=== PATIENT | male | born 1980 | race American Indian/Alaskan Native ===

== ENCOUNTER 2017-04-25 17:28 | Emergency (ER) | payer MEDICAID ==
[2017-04-25 17:41] VITALS: BP 137/79
[2017-04-25 18:22] LABS: CHLORIDE,CL 104 mmol/L (101-111); SODIUM,NA 136 mmol/L (135-145)
--- NOTE | 2017-04-25 19:34 | EDM.PDOC ---
Scribed by Lena Shaffer 04/25/17 1913 for Agapito Bravo PA ED HPI GENERAL MEDICAL PROBLEM - General Chief Complaint: Fever Stated Complaint: [id number] CHEST AND BACK PAIN HARDLY BREATH Time Seen by Provider: 04/25/17 18:55 Source of Information: Reports: Patient History Limitations: Reports: No Limitations - History of Present Illness INITIAL COMMENTS - FREE TEXT/NARRATIVE: This 36 yo male patient reports to the ED with generalized chest tightness, a fever and not feeling well over the past 1-2 weeks. The patient reports he has had increased stress in his life, but got worried when his symptoms continued over the week. Duration: Week(s):, Constant Location: Reports: Chest Quality: Reports: Dull, Pressure Severity: Moderate Improves with: Reports: None Worsens with: Reports: None Associated Symptoms: Reports: No Other Symptoms Back Pain Score (Numeric/FACES): 5 - Related Data Allergies Allergy/AdvReac Type Severity Reaction Status Date / Time No Known Allergies Allergy Verified 04/25/17 17:38 Home Meds: Home Meds Buprenorphine HCl/Naloxone HCl [Zubsolv 8.6-2.1 mg Tablet Sl] 2 tab PO ASDIRECTED 04/25/17 [History] Past Medical History - Past Health History Medical/Surgical History: Denies Medical/Surgical History HEENT History: Reports: None Cardiovascular History: Reports: None Respiratory History: Reports: None Gastrointestinal History: Reports: None Genitourinary History: Reports: None Musculoskeletal History: Reports: None Neurological History: Reports: None Psychiatric History: Reports: Addiction Endocrine/Metabolic History: Reports: None Hematologic History: Reports: None Immunologic History: Reports: None Oncologic (Cancer) History: Reports: None Dermatologic History: Reports: None - Infectious Disease History Infectious Disease History: Reports: None - Past Surgical History Head Surgeries/Procedures: Reports: None Male Surgical History: Reports: None Social & Family History - Tobacco Use Smoking Status *Q: Current Every Day Smoker Years of Tobacco use: 1 Packs/Tins Daily: 0.5 Second Hand Smoke Exposure: No - Alcohol Use Days Per Week of Alcohol Use: 2 - Recreational Drug Use Recreational Drug Use: Yes Recreational Drug Type: Reports: Other (see below) Other Recreational Drug Type: tramadol Recreational Drug Use Frequency: Not Used In Over 2 Months - Living Situation & Occupation Living situation: Reports: Occupation: Employed ED ROS GENERAL - Review of Systems Review Of Systems: ROS reveals no pertinent complaints other than HPI. ED EXAM, GENERAL - Physical Exam Exam: See Below Exam Limited By: No Limitations General Appearance: Alert, WD/WN, No Apparent Distress Ears: Normal External Exam, Normal Canal, Hearing Grossly Normal, Normal TMs Nose: Normal Inspection, Normal Mucosa, No Blood Throat/Mouth: Normal Inspection, Normal Lips, Normal Teeth, Normal Gums, Normal Oropharynx, Normal Voice, No Airway Compromise Head: Atraumatic, Normocephalic Neck: Normal Inspection, Supple, Non-Tender, Full Range of Motion Respiratory/Chest: No Respiratory Distress, Chest Non-Tender, Rhonchi (faint in lower lobes) Cardiovascular: Normal Peripheral Pulses, Regular Rate, Rhythm, No Edema, No Gallop, No JVD, No Murmur, No Rub GI/Abdominal: Normal Bowel Sounds, Soft, Non-Tender, No Organomegaly, No Distention, No Abnormal Bruit, No Mass (Male) Exam: Deferred Rectal (Males) Exam: Deferred Back Exam: Normal Inspection, Full Range of Motion, NT Extremities: Normal Inspection, Normal Range of Motion, Non-Tender, Normal Capillary Refill, No Pedal Edema Neurological: Alert, Oriented, CN II-XII Intact, Normal Cognition, Normal Reflexes, No Motor/Sensory Deficits Psychiatric: Anxious Skin Exam: Warm, Dry, Intact, Normal Color, No Rash Lymphatic: No Adenopathy Course - Vital Signs Last Recorded V/S: Last Vital Signs Temp 38.2 C H 04/25/17 17:40 Pulse 79 04/25/17 17:40 Resp 16 04/25/17 17:40 BP 137/79 04/25/17 17:40 Pulse Ox 97 04/25/17 17:40 - Orders/Labs/Meds Orders: Active Orders 24 hr Category Date Time Status EKG Documentation Completion [RC] STAT Care 04/25/17 18:58 Active Labs: Laboratory Tests 04/25/17 04/25/17 04/25/17 Range/Units 17:58 17:58 17:58 WBC 8.2 (5.0-10.0) 10^3/uL RBC 4.96 (4.6-6.2) 10^6/uL Hgb 14.8 (14.0-18.0) g/dL Hct 43.2 (40.0-54.0) % MCV 87.1 (80-100) fL MCH 29.8 (27.0-34.0) pg MCHC 34.3 (33.0-35.0) g/dL Plt Count 246 (150-450) 10^3/uL Neut % (Auto) 75.5 H (42.2-75.2) % Lymph % (Auto) 18.7 L (20.5-50.1) % [place] % (Auto) 5.1 (2-8) % Eos % (Auto) 0.2 L (1.0-3.0) % Baso % (Auto) 0.5 (0.0-1.0) % Sodium 136 (135-145) mmol/L Potassium 3.5 L (3.6-5.0) mmol/L Chloride 104 (101-111) mmol/L Carbon Dioxide 26.0 (21.0-31.0) mmol/L Anion Gap 9.5 BUN 11 (7-18) mg/dL Creatinine 1.1 (0.6-1.3) mg/dL Est Cr Clr Drug Dosing 85.13 mL/min Estimated GFR (MDRD) > 60 BUN/Creatinine Ratio 10.00 Glucose 101 (74-105) mg/dL Calcium 8.9 (8.4-10.2) mg/dl Total Bilirubin 0.9 (0.2-1.0) mg/dL AST 26 (10-42) IU/L ALT 27 (10-60) IU/L Alkaline Phosphatase 57 (42-121) IU/L Troponin I < 0.02 (0.00-0.02) ng/ml Total Protein 7.5 (6.7-8.2) g/dl Albumin 4.7 (3.2-5.5) g/dl Globulin 2.8 Albumin/Globulin Ratio 1.68 Influenza A and B: Negative. Departure - Departure Time of Disposition: 19:32 Disposition: Home, Self-Care 01 Condition: Fair Clinical Impression: Bronchitis - Discharge Information Instructions: Acute Bronchitis, [place] Forms: ED Department Discharge Care Plan Goals: The patient was advised of the examination, lab and EKG results during the visit. The patient was discharged with a script for Augmentin (500/125) to take 1 by mouth 3 times per day for 10 days. If the patient has any additional symptoms or concerns, the patient should follow-up with his primary care facility or return to the emergency department. I have read and agree with the documentation that has been completed regarding this visit. By signing this record, I attest that the documentation was completed in my physical presence and is an accurate record of the encounter.
--- NOTE | 2017-04-27 12:40 | EKG ---
04/25/2017 - DIANA GOMEZ - FINDINGS: A 12-lead EKG shows normal sinus rhythm with heart rate of 63. No significant ST elevation or ST depression noted on this 12-lead EKG. [facility] /[id number]
== END 2017-04-25 19:39 | disposition home or self-care (01) ==
LOC: DL.ED 17:28
DX: J40 Bronchitis, not specified as acute or chronic (principal); F17.210 Nicotine dependence, cigarettes, uncomplicated
CPT/HCPCS: 36415; 80053; 84484; 85025; 87804; 93005; 99285

== ENCOUNTER 2018-08-29 13:57 | Emergency (ER) | payer BC, MEDICAID ==
[2018-08-29 14:06] VITALS: BP 143/82
--- NOTE | 2018-08-29 14:38 | EDM.PDOC ---
<Shoshana Gatica - Last Filed: 08/29/18 15:41> ED HPI GENERAL MEDICAL PROBLEM - General Chief Complaint: General Stated Complaint: LEFT ARM NUMB,FEELING FAINT,SLURRED SPEECH Time Seen by Provider: 08/29/18 14:30 Source of Information: Reports: Patient History Limitations: Reports: No Limitations - History of Present Illness INITIAL COMMENTS - FREE TEXT/NARRATIVE: Patient presents to ER with CC of tingling in right hand that started in fingers and moved up his arm and dizziness that began today while at work. 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 Patient additionally states that it may be anxiety, although he reports no hx of anxiety. Patient denies any chest pain or shortness of breath. Patient PMH positive for hypertension, although negative for other cardiovascular disease. Patient NIH scale negative. Denies any N/V, fever, chills, recent illness. VSS upon arrival. Patient is alert & orientated x4. PERRLA. Onset Date: 08/29/18 Onset Time: 13:30 - Related Data Allergies Allergy/AdvReac Type Severity Reaction Status Date / Time No Known Allergies Allergy Verified 08/29/18 14:07 Home Meds: Home Meds Buprenorphine HCl/Naloxone HCl [Zubsolv 8.6-2.1 mg Tablet Sl] 2 tab PO ASDIRECTED 04/25/17 [History] Losartan [Cozaar] 50 mg PO DAILY 08/29/18 [History] Past Medical History - Past Health History Medical/Surgical History: Denies Medical/Surgical History HEENT History: Reports: None Cardiovascular History: Reports: Hypertension Respiratory History: Reports: None Gastrointestinal History: Reports: None Genitourinary History: Reports: None Musculoskeletal History: Reports: None Neurological History: Reports: None Psychiatric History: Reports: Addiction Endocrine/Metabolic History: Reports: None Hematologic History: Reports: None Immunologic History: Reports: None Oncologic (Cancer) History: Reports: None Dermatologic History: Reports: None - Infectious Disease History Infectious Disease History: Reports: None - Past Surgical History Head Surgeries/Procedures: Reports: None Male Surgical History: Reports: None Social & Family History - Tobacco Use Smoking Status *Q: Current Every Day Smoker Years of Tobacco use: 1 Packs/Tins Daily: 0.1 - Caffeine Use Caffeine Use: Reports: Coffee - Recreational Drug Use Recreational Drug Use: No - Living Situation & Occupation Living situation: Reports: Occupation: Employed ED ROS GENERAL - Review of Systems Review Of Systems: ROS reveals no pertinent complaints other than HPI. ED EXAM, GENERAL - Physical Exam Exam: See Below Exam Limited By: No Limitations General Appearance: Alert, WD/WN, No Apparent Distress Eye Exam: Bilateral Eye: EOMI, Normal Inspection, PERRL, Vision Changes ( "occassional blurred vision") Ears: Normal External Exam, Normal Canal, Hearing Grossly Normal, Normal TMs Ear Exam: Bilateral Ear: Auricle Normal, Canal Normal, TM normal Nose: Normal Inspection, Normal Mucosa, No Blood Throat/Mouth: Normal Inspection, Normal Lips, Normal Teeth, Normal Gums, Normal Oropharynx, Normal Voice, No Airway Compromise Head: Atraumatic, Normocephalic Neck: Normal Inspection, Supple, Non-Tender, Full Range of Motion Respiratory/Chest: No Respiratory Distress, Lungs Clear, Normal Breath Sounds, No Accessory Muscle Use, Chest Non-Tender Cardiovascular: Normal Peripheral Pulses, Regular Rate, Rhythm, No Edema, No Gallop, No JVD, No Murmur, No Rub Peripheral Pulses: 3+: Radial (L), Radial (R), Posterior Tibial (L), Posterior Tibial (R), Dorsalis Pedis (L), Dorsalis Pedis (R) GI/Abdominal: Normal Bowel Sounds, Soft, Non-Tender, No Organomegaly, No Distention, No Abnormal Bruit, No Mass Back Exam: Normal Inspection, Full Range of Motion, NT Extremities: Normal Inspection, Normal Range of Motion, Non-Tender, Normal Capillary Refill, No Pedal Edema Neurological: Alert, Oriented, CN II-XII Intact, Normal Cognition, Normal Gait, Normal Reflexes, No Motor/Sensory Deficits Psychiatric: Normal Affect, Normal Mood Skin Exam: Warm, Dry, Intact, Normal Color, No Rash Lymphatic: No Adenopathy EKG INTERPRETATION EKG Date: 08/29/18 Time: 14:46 Rhythm: NSR Rate (Beats/Min): 64 [place]: Normal P-Wave: Present QRS: Normal ST-T: Normal QT: Normal Course - Vital Signs Last Recorded V/S: Last Vital Signs Temp 99.4 F 08/29/18 14:05 Pulse 68 08/29/18 14:05 Resp 10 L 08/29/18 14:05 BP 143/82 H 08/29/18 14:05 Pulse Ox 99 08/29/18 14:05 - Orders/Labs/Meds Orders: Active Orders 24 hr Category Date Time Status EKG Documentation Completion [RC] STAT Care 08/29/18 14:39 Active Labs: Laboratory Tests 08/29/18 08/29/18 08/29/18 Range/Units 14:45 14:54 14:54 WBC 6.0 (5.0-10.0) 10^3/uL RBC 4.90 (4.6-6.2) 10^6/uL Hgb 14.8 (14.0-18.0) g/dL Hct 43.0 (40.0-54.0) % MCV 87.8 (80-100) fL MCH 30.2 (27.0-34.0) pg MCHC 34.4 (33.0-35.0) g/dL Plt Count 249 (150-450) 10^3/uL Neut % (Auto) 63.2 (42.2-75.2) % Lymph % (Auto) 26.5 (20.5-50.1) % [place] % (Auto) 8.8 H (2-8) % Eos % (Auto) 1.0 (1.0-3.0) % Baso % (Auto) 0.5 (0.0-1.0) % Sodium 137 (135-145) mmol/L Potassium 4.3 (3.6-5.0) mmol/L Chloride 103 (101-111) mmol/L Carbon Dioxide 25.0 (21.0-31.0) mmol/L Anion Gap 13.3 BUN 10 (7-18) mg/dL Creatinine 0.9 (0.6-1.3) mg/dL Est Cr Clr Drug Dosing TNP Estimated GFR (MDRD) > 60 BUN/Creatinine Ratio 11.11 Glucose 98 (74-105) mg/dL Calcium 9.1 (8.4-10.2) mg/dl Magnesium 1.8 (1.8-2.5) mg/dL Total Bilirubin 1.0 (0.2-1.0) mg/dL AST 136 H (10-42) IU/L ALT 358 H (10-60) IU/L Alkaline Phosphatase 72 (42-121) IU/L Total Protein 7.1 (6.7-8.2) g/dl Albumin 4.0 (3.2-5.5) g/dl Globulin 3.1 Albumin/Globulin Ratio 1.29 Urine Color Light yellow (YELLOW) Urine Appearance Clear (CLEAR) Urine pH 7.5 (5.0-9.0) Ur Specific [place] 1.010 (1.005-1.030) Urine Protein Negative (NEGATIVE) Urine Glucose (UA) Negative (NEGATIVE) Urine Ketones Negative (NEGATIVE) Urine Occult Blood Negative (NEGATIVE) Urine Nitrite Negative (NEGATIVE) Urine Bilirubin Negative (NEGATIVE) Urine Urobilinogen 0.2 (0.2-1.0) mg/dL Ur Leukocyte Esterase Negative (NEGATIVE) Meds: Medications Discontinued Medications Generic Name Dose Route Start Last Admin Trade Name Freq PRN Reason Stop Dose Admin Sodium Chloride 1,000 mls @ 999 mls/hr 08/29/18 14:39 08/29/18 15:53 Normal Saline IV 08/29/18 15:39 999 mls/hr .BOLUS ONE Administration Departure - Departure Time of Disposition: 15:41 Disposition: Home, Self-Care 01 Condition: Good Clinical Impression: Elevated liver enzymes Heat exhaustion Qualifiers: Encounter type: initial encounter Qualified Code(s): T67.5XXA - Heat exhaustion , unspecified, initial encounter - Discharge Information *PRESCRIPTION DRUG MONITORING PROGRAM REVIEWED*: No *COPY OF PRESCRIPTION DRUG MONITORING REPORT IN PATIENT WALTER: No Instructions: Heat Exhaustion Information, Fatty Liver Referrals: PCP,None [Primary Care Provider] - Forms: ED Department Discharge Additional Instructions: Continue to push fluids to prevent any further dehydration. You did receive 1L bolus of fluids within the emergency room today. Avoid prolonged heat exposure for next several days. Follow up with primary care provider for elevated liver enzymes. <Jamir Roa - Last Filed: 08/29/18 18:55> Course - Re-Assessments/Exams Free Text/Narrative Re-Assessment/Exam: 08/29/18 15:24 I personally performed or re-performed the physical examination and medical decision making. I have verified all student documentation or findings, including history, physical exam and/or medical decision making.
[2018-08-29] MEDS ORDERED: Sodium Chloride 0.9% 1,000 ML IV ONE (14:39)
[2018-08-29 15:25] LABS: ANION GAP 13.3; CHLORIDE,CL 103 mmol/L (101-111); SODIUM,NA 137 mmol/L (135-145)
== END 2018-08-29 16:16 | disposition home or self-care (01) ==
LOC: DL.ED 13:57
DX: T67.5XXA Heat exhaustion, unspecified, initial encounter (principal); R74.8 Abnormal levels of other serum enzymes; I10 Essential (primary) hypertension; F17.210 Nicotine dependence, cigarettes, uncomplicated; Z79.899 Other long term (current) drug therapy
CPT/HCPCS: 36415; 80053; 81003; 83735; 85025; 93005; 96365; 99284; J7030

== ENCOUNTER 2019-11-02 08:46 | Emergency (ER) | payer BC ==
[2019-11-02 08:59] VITALS: BP 139/76; PULSE 62
[2019-11-02] MEDS ORDERED: Bacitracin Oint 1 GM U/D Packet TOP ONE (09:10)
--- NOTE | 2019-11-02 09:15 | EDM.PDOC ---
ED HPI GENERAL MEDICAL PROBLEM - General Chief Complaint: Genitourinary Problem Stated Complaint: penis lecion Time Seen by Provider: 11/02/19 09:00 Source of Information: Reports: Patient History Limitations: Reports: No Limitations - History of Present Illness INITIAL COMMENTS - FREE TEXT/NARRATIVE: This 39 oy male patient reports to the ED with bleeding from his penis. The p atient reports he had sexual intercourse this morning and believes he tore his foreskin. The patient has not done anything to stop the bleeding at this time. Onset: Today Duration: Minutes: Quality: Reports: Other Severity: Mild Improves with: Reports: None Worsens with: Reports: None Context: Reports: Activity Associated Symptoms: Reports: No Other Symptoms Penis Pain Score (Numeric/FACES): 1 - Related Data Allergies Allergy/AdvReac Type Severity Reaction Status Date / Time No Known Allergies Allergy Verified 11/02/19 08:59 Home Meds: Home Meds Buprenorphine HCl/Naloxone HCl [Zubsolv 8.6-2.1 mg Tablet Sl] 2 tab PO ASDIRECTED 04/25/17 [History] Losartan [Cozaar] 50 mg PO DAILY 08/29/18 [History] Aspirin [Aspirin EC] 81 mg PO DAILY 11/02/19 [History] hydroCHLOROthiazide [Hydrochlorothiazide] 25 mg PO DAILY 11/02/19 [History] Past Medical History - Past Health History Medical/Surgical History: Denies Medical/Surgical History HEENT History: Reports: None, Impaired Vision Other HEENT History: wears glasses Cardiovascular History: Reports: Hypertension Respiratory History: Reports: None Gastrointestinal History: Reports: None Genitourinary History: Reports: None Musculoskeletal History: Reports: None Neurological History: Reports: None Psychiatric History: Reports: Addiction Endocrine/Metabolic History: Reports: None Hematologic History: Reports: None Immunologic History: Reports: None Oncologic (Cancer) History: Reports: None Dermatologic History: Reports: None - Infectious Disease History Infectious Disease History: Reports: None - Past Surgical History Head Surgeries/Procedures: Reports: None Male Surgical History: Reports: None Social & Family History - Tobacco Use Smoking Status *Q: Current Every Day Smoker Years of Tobacco use: 2 Packs/Tins Daily: 0.5 Second Hand Smoke Exposure: No - Caffeine Use Caffeine Use: Reports: Coffee, Soda - Recreational Drug Use Recreational Drug Use: No - Living Situation & Occupation Living situation: Reports: Occupation: Employed ED ROS GENERAL - Review of Systems Review Of Systems: Comprehensive ROS is negative, except as noted in HPI. ED EXAM, RENAL/ - Physical Exam Exam: See Below Exam Limited By: No Limitations General Appearance: Alert, WD/WN, Mild Distress Eye Exam: Bilateral Eye: EOMI, Normal Inspection, PERRL Ears: Normal External Exam, Normal Canal, Hearing Grossly Normal, Normal TMs Nose: Normal Inspection, Normal Mucosa, No Blood Throat/Mouth: Normal Inspection, Normal Lips, Normal Teeth, Normal Gums, Normal Oropharynx, Normal Voice, No Airway Compromise Head: Atraumatic, Normocephalic Neck: Normal Inspection, Supple, Non-Tender, Full Range of Motion Respiratory/Chest: No Respiratory Distress Cardiovascular: Normal Peripheral Pulses, Regular Rate, Rhythm GI/Abdominal: Normal Bowel Sounds, Soft, Non-Tender, No Organomegaly, No Distention, No Abnormal Bruit, No Mass (Male) Exam: Penile Lesions (abrasion on the base of the penis with no current bleeding. The lesion had clotted by the time the patient arrived in the ED. ) Rectal (Males) Exam: Deferred Extremities: Normal Inspection, Normal Range of Motion Neurological: Alert, Oriented, Normal Cognition, Normal Gait Psychiatric: Normal Affect, Normal Mood Skin Exam: Wound/Incision (base of the glands of his penis (abrasion)) Lymphatic: No Adenopathy Course - Vital Signs Last Recorded V/S: Last Vital Signs Temp 36.6 C 11/02/19 08:54 Pulse 62 11/02/19 08:54 Resp 16 11/02/19 08:54 BP 139/76 11/02/19 08:54 Pulse Ox 97 11/02/19 08:54 - Orders/Labs/Meds Meds: Medications Discontinued Medications Generic Name Dose Route Start Last Admin Trade Name Freq PRN Reason Stop Dose Admin Bacitracin 1 dose 11/02/19 09:10 11/02/19 09:13 Bacitracin Oint 1 Gm TOP 11/02/19 09:11 1 dose ONETIME ONE Administration Departure - Departure Time of Disposition: 09:12 Disposition: Home, Self-Care 01 Condition: Fair Clinical Impression: Abrasion of penis Qualifiers: Encounter type: initial encounter Qualified Code(s): S30.812A - Abrasion of penis, initial encounter - Discharge Information *PRESCRIPTION DRUG MONITORING PROGRAM REVIEWED*: Not Applicable *COPY OF PRESCRIPTION DRUG MONITORING REPORT IN PATIENT WALTER: Not Applicable Instructions: Abrasion, [id number] Forms: ED Department Discharge Care Plan Goals: The patient was advised of the examination results during the visit. The patient was given Bacitracin Ointment to apply to the area. The patient was encouraged to keep the area clean and dry for the next 24 hours. The patient should avoid sexual activity until the lesion is completely healed. If the patient has any additional symptoms or concerns, the patient should either return to the emergency department or visit his primary care facility. Sepsis Event Note (ED) - Evaluation Sepsis Screening Result: No Definite Risk - Focused Exam Vital Signs: Vital Signs Temp Pulse Resp BP Pulse Ox 11/02/19 08:54 36.6 C 62 16 139/76 97
== END 2019-11-02 09:19 | disposition home or self-care (01) ==
LOC: DL.ED 08:46
DX: S30.812A Abrasion of penis, initial encounter (principal); I10 Essential (primary) hypertension; F17.210 Nicotine dependence, cigarettes, uncomplicated; Z79.82 Long term (current) use of aspirin; Z79.899 Other long term (current) drug therapy; X58.XXXA Exposure to other specified factors, initial encounter
CPT/HCPCS: 99282; 99283

== ENCOUNTER 2020-08-24 18:57 | Emergency (ER) | payer BC, MEDICAID ==
[2020-08-24 19:02] VITALS: BP 142/77; PULSE 59
--- NOTE | 2020-08-24 19:08 | EDM.PDOC ---
ED HPI GENERAL MEDICAL PROBLEM - General Chief Complaint: Laceration Stated Complaint: CUT ON RIGHT HAND Time Seen by Provider: 08/24/20 19:03 Source of Information: Reports: Patient, RN, RN Notes Reviewed History Limitations: Reports: No Limitations - History of Present Illness INITIAL COMMENTS - FREE TEXT/NARRATIVE: Anastacio is a 40 y/o male who presents to the ED via personal vehicle with for complaints of laceration to right hand. The patient reports the injury occurred approximately 30 minutes prior to his arrival to this facility. He states he injured the hand on glass. He denies loss of motor or sensory function to the affected extremity. He unsure of the date of his last tetanus vaccine. Right Hand Pain Score (Numeric/FACES): 8 - Related Data Allergies Allergy/AdvReac Type Severity Reaction Status Date / Time No Known Allergies Allergy Verified 08/24/20 19:03 Home Meds: Home Meds Buprenorphine HCl/Naloxone HCl [Zubsolv 8.6-2.1 mg Tablet Sl] 2 tab PO ASDIRECTED 04/25/17 [History] Losartan [Cozaar] 50 mg PO DAILY 08/29/18 [History] Aspirin [Aspirin EC] 81 mg PO DAILY 11/02/19 [History] hydroCHLOROthiazide [Hydrochlorothiazide] 25 mg PO DAILY 11/02/19 [History] Past Medical History - Past Health History Medical/Surgical History: Denies Medical/Surgical History HEENT History: Reports: None, Impaired Vision Other HEENT History: wears glasses Cardiovascular History: Reports: Hypertension Respiratory History: Reports: None Gastrointestinal History: Reports: None Genitourinary History: Reports: None Musculoskeletal History: Reports: None Neurological History: Reports: None Psychiatric History: Reports: Addiction Endocrine/Metabolic History: Reports: None Hematologic History: Reports: None Immunologic History: Reports: None Oncologic (Cancer) History: Reports: None Dermatologic History: Reports: None - Infectious Disease History Infectious Disease History: Reports: None - Past Surgical History Head Surgeries/Procedures: Reports: None Male Surgical History: Reports: None Social & Family History - Caffeine Use Caffeine Use: Reports: Coffee, Soda - Living Situation & Occupation Living situation: Reports: Occupation: Employed ED ROS GENERAL - Review of Systems Review Of Systems: Comprehensive ROS is negative, except as noted in HPI. ED EXAM, SKIN/RASH Exam: See Below Exam Limited By: No Limitations General Appearance: Alert, No Apparent Distress Eye Exam: Bilateral Eye: EOMI, Normal Inspection, PERRL (3mm) Ears: Normal External Exam, Hearing Grossly Normal Nose: Normal Inspection, Normal Mucosa, No Blood Throat/Mouth: Normal Inspection, Normal Lips, Normal Teeth, Normal Gums, Normal Oropharynx, Normal Voice, No Airway Compromise Head: Atraumatic, Normocephalic Neck: Normal Inspection, Supple, Non-Tender, Full Range of Motion Respiratory/Chest: No Respiratory Distress, Lungs Clear, Normal Breath Sounds, No Accessory Muscle Use, Chest Non-Tender Cardiovascular: Normal Peripheral Pulses, Regular Rate, Rhythm, No Edema, No Gallop, No JVD, No Murmur, No Rub Peripheral Pulses: 2+: Radial (L), Radial (R) GI/Abdominal: Normal Bowel Sounds, Soft, Non-Tender, No Distention, No Abnormal Bruit, No Mass, Pelvis Stable (Male) Exam: Deferred Rectal (Males) Exam: Deferred Back Exam: Normal Inspection, Full Range of Motion Extremities: Normal Range of Motion, Normal Capillary Refill, Arm Pain (3cm laceration to right hand). No: Joint Swelling, Increased Warmth, Mottled, Pallor, Redness Neurological: Alert, Oriented, CN II-XII Intact, Normal Cognition, Normal Gait, No Motor/Sensory Deficits Psychiatric: Normal Affect, Normal Mood Skin: Warm, Dry, Normal Color, No Rash, Wound/Incision (3cm laceration to right hand) Location, Skin: Upper Extremity, Right Characteristics: Other Associated features: Tenderness. No: Warmth, Swelling, Inflammation, Crusting, Weeping ED SKIN PROCEDURES - Laceration/Wound Repair Right Posterior Proximal Digit - 1st (Thumb) Appearance: Subcutaneous, Linear, Clean Distal NVT: Neuro & Vascular Intact, No Tendon Injury Anesthetic Type: Local Local Anesthesia - Lidocaine (Xylocaine): 1% Plain Local Anesthetic Volume: 4cc Skin Prep: Chlorhexidine (Hibiciens), Sterile Drape Exploration/Debridement/Repair: Wound Explored, In a Bloodless Field, Explored to Base, No Foreign Material Found Closed with: Sutures Lac/Wound length In cm: 3 Suture Size: 4-0 # of Sutures: 5 Suture Type: Prolene Drain Placement: No Sterile Dressing Applied: Nurse Tetanus Status Addressed: Yes Complications: No Course - Vital Signs Last Recorded V/S: Last Vital Signs Temp 98.3 F 08/24/20 19:01 Pulse 59 L 08/24/20 19:01 Resp 16 08/24/20 19:01 BP 142/77 H 08/24/20 19:01 Pulse Ox 99 08/24/20 19:01 - Orders/Labs/Meds Meds: Medications Discontinued Medications Generic Name Dose Route Start Last Admin Trade Name Martha PRN Reason Stop Dose Admin Bacitracin 1 dose 08/24/20 19:24 08/24/20 19:28 Bacitracin Oint 1 Gm U/D Packet TOP 08/24/20 19:25 1 dose ONETIME ONE Administration Diphtheria/Tetanus/Acell Pertussis 0.5 ml 08/24/20 19:26 08/24/20 19:31 Diphtheria,Pertussis(Acell),Tetanus Vaccine 0.5 Ml Syringe IM 08/24/20 19:27 0.5 ml .ONCE ONE Administration Lidocaine HCl 30 ml 08/24/20 19:24 08/24/20 19:28 Lidocaine 1% 30 Ml Sdv INJECT 08/24/20 19:25 30 ml ONETIME ONE Administration - Re-Assessments/Exams Free Text/Narrative Re-Assessment/Exam: 08/24/20 Laceration to right hand sutured without complication. Boostrix administered. Discussed at-home laceration care. Red flag signs and symptoms which would warrant reevaluation reviewed. Patient verbalized understanding and agreement with the plan of care. Departure - Departure Time of Disposition: 19:58 Disposition: Home, Self-Care 01 Condition: Good Clinical Impression: Laceration of right thumb without complication Qualifiers: Encounter type: initial encounter Qualified Code(s): S61.011A - Laceration wit hout foreign body of right thumb without damage to nail, initial encounter - Discharge Information *PRESCRIPTION DRUG MONITORING PROGRAM REVIEWED*: Not Applicable *COPY OF PRESCRIPTION DRUG MONITORING REPORT IN PATIENT WALTER: Not Applicable Instructions: Laceration Care, Adult, [id number] Referrals: PCP,None [Primary Care Provider] - Forms: ED Department Discharge Additional Instructions: 1.) Follow up with primary care facility for suture removal in seven days. 2.) Keep wound clean, dry, and open to air as it heals; use a bandage if drainage is present. 3.) You may take ibuprofen (Advil/Motrin) 400mg every six hours, as pain persists. You may also take acetaminophen (Tylenol) 650mg every six hours, as pain persists. You may stagger these medications so you are receiving a dose every three hours. 4.) Monitor for signs of infection, including redness, swelling, increase in pain, or white/ocampo drainage. Sepsis Event Note (ED) - Evaluation Sepsis Screening Result: No Definite Risk
[2020-08-24] MEDS ORDERED: Lidocaine 1% 30 ML SDV INJECT ONE (19:24)
[2020-08-24] MEDS ORDERED: Bacitracin Oint 1 GM U/D Packet TOP ONE (19:24)
[2020-08-24] MEDS ORDERED: Diphtheria,Pertussis(Acell),Tetanus Vaccine 0.5 ML Syringe IM ONE (19:26)
== END 2020-08-24 20:00 | disposition home or self-care (01) ==
LOC: DL.ED 18:57
DX: S61.011A Laceration without foreign body of right thumb without damage to nail, initial encounter (principal); I10 Essential (primary) hypertension; Z79.82 Long term (current) use of aspirin; Z23 Encounter for immunization; W25.XXXA Contact with sharp glass, initial encounter
CPT/HCPCS: 12002; 90471; 90715; 99282; 99282-25